=== PATIENT | female | born 2000 | race African-American/Black ===

== ENCOUNTER 2022-07-08 19:32 | Emergency (ER) | payer OTHER ==
[~2022-07-08] VITALS: Ht 157.5 cm; Wt 99.8 kg
[2022-07-08 20:08] VITALS: BP 135/82; TEMP 98.8
== END 2022-07-08 20:50 | disposition home or self-care (01) ==
LOC: ED 19:32
DX: S71.152A Open bite, left thigh, initial encounter (principal); W54.0XXA Bitten by dog, initial encounter; Y92.89 Other specified places as the place of occurrence of the external cause
CPT/HCPCS: 90472; 90715; 99282

== ENCOUNTER 2022-07-19 20:14 | Emergency (ER) | payer OTHER ==
[~2022-07-19] VITALS: Ht 157.5 cm; Wt 99.8 kg
[2022-07-19 20:31] VITALS: BP 114/78; TEMP 98.8
== END 2022-07-19 21:13 | disposition home or self-care (01) ==
LOC: ED 20:14
DX: S71.112D Laceration without foreign body, left thigh, subsequent encounter (principal); W54.0XXD Bitten by dog, subsequent encounter; Y92.89 Other specified places as the place of occurrence of the external cause
CPT/HCPCS: 99282